=== PATIENT | male | born 1965 | race Caucasian/White ===

== ENCOUNTER 2023-11-05 08:26 | Day surgery (SDC) | payer OTHER ==
[2023-11-03 12:55] VITALS: BMI 31.1
[~2023-11-05 08:26] MED LIST: DEXAMETHASONE SOD PHOSPHATE 4 MG/ML 1 ML VIAL IV ONE; HYDROmorphone 0.5 MG/0.5 ML SYRINGE IVP PRN; MIDAZOLAM 2 MG/2 ML VIAL IV PRN
[2023-11-05] MEDS: ACETAMINOPHEN TAB 500 MG TAB PO PRN (09:06)
[2023-11-05] MEDS: ONDANSETRON 4 MG/2 ML VIAL IVP ONE (09:06)
[2023-11-05] MEDS: FAMOTIDINE 20 MG/2 ML VIAL IV STA (09:07)
[2023-11-05] MEDS: LACTATED RINGERS 1,000 ML IV SCH (09:08)
[2023-11-05 09:12] LABS: Glucose,Whole Blood 218 mg/dL (70-110)
[2023-11-05] MEDS: IV FLUID CONTINUATION 1,000 ML IV ONE ×2 (09:15→12:31)
[2023-11-05] MEDS: SCOPOLAMINE 1 MG/72 HR PATCH TRANSDERM ONE (09:26)
[2023-11-05] MEDS: TAMSULOSIN 0.4 MG CAP.ER.24H PO STA (09:26)
[2023-11-05] MEDS: HEPARIN SODIUM,PORCINE 5,000 UNIT/ML 1 ML VIAL SQ PRN (09:27)
[2023-11-05] MEDS ORDERED: PROPOFOL 10 MG/ML 20 ML VIAL IV ONE (09:57)
[2023-11-05] MEDS ORDERED: LIDOCAINE 4% LTA KIT (4 ML) TOPICAL ONE (09:57)
[2023-11-05] MEDS ORDERED: NEOSTIGMINE 1 MG/ML 10 ML VIAL ONE (09:57)
[2023-11-05] MEDS ORDERED: SUCCINYLCHOLINE CHLORIDE 200 MG/10 ML VIAL IV ONE (09:57)
[2023-11-05] MEDS ORDERED: fentaNYL (PF) 50 MCG/ML 2 ML AMP ONE (09:57)
[2023-11-05] MEDS ORDERED: LIDOCAINE 1% INJ 10MG/ML (20 ML MDV) ONE (09:57)
[2023-11-05] MEDS ORDERED: GLYCOPYRROLATE 0.2 MG/ML 2 ML VIAL ONE (09:57)
[2023-11-05] MEDS ORDERED: MIDAZOLAM 2 MG/2 ML VIAL ONE (09:57)
[2023-11-05] MEDS ORDERED: KETOROLAC 30 MG/ML 1 ML VIAL ONE (09:57)
[2023-11-05] MEDS ORDERED: HYDROmorphone (PF) 1 MG/ML ONE (09:57)
[2023-11-05] MEDS ORDERED: ROCURONIUM 10 MG/ML (5 ML VIAL) IV ONE (09:57)
[2023-11-05] MEDS: BUPIVACAINE (PF) 0.25% 30 ML VIAL SQ ONE (10:00)
[2023-11-05 10:10] LABS: African American GFR (CKD) >90 (>60 ml/min/1.73 sqM); Anion Gap 6 mmol/L; Blood Urea Nitrogen 15 mg/dL (9-20); Calcium 9.4 mg/dL (8.4-10.2); Carbon Dioxide 24 mmol/L (22-30); Chloride 106 mmol/L (98-107); Glucose 205 mg/dL (74-99); Non-African American GFR(CKD) >90 (>60 ml/min/1.73 sqM); Potassium 4.1 mmol/L (3.5-5.1); Sodium 136 mmol/L (137-145)
[2023-11-05] MEDS ORDERED: ACETAMINOPHEN TAB 325 MG TAB PO SCH (12:00)
[2023-11-05 12:02] VITALS: TEMP 97.2
--- NOTE | 2023-11-05 12:03 | P.OP ---
Date of Procedure: 11/05/23 Procedure(s) Performed: PREOPERATIVE DIAGNOSIS: Left inguinal hernia POSTOPERATIVE DIAGNOSIS: Large left inguinal hernia PROCEDURE: Laparoscopic da Marcia assisted repair left inguinal hernia with mesh SURGEON: Dr. White ANESTHESIA: General OPERATIVE PROCEDURE DETAILS: Patient was placed in the operating table in the supine position. The patient was placed under general anesthesia. The abdomen was prepped and draped in usual sterile fashion. A small curvilinear supraumbilical incision was made. The fascia was retracted anteriorly with [place] forceps. The Veress needle was inserted. The saline drop test was normal. Insufflation took place to 15 mmHg. An 8 mm trocar was placed into the peritoneal cavity. 2 additional 8 mm trochars were placed in the right upper quadrant and left upper quadrant under visualization. The robotic arms were then brought in and docked into place. The fenestrated bipolar was used in the left arm and the laparoscopic mike was utilized in the right arm. A 30 8 mm scope was used in the up position. The peritoneal cavity was inspected. The patient had some adhesions in the right lower quadrant from the prior appendectomy. There may have been the start of a tiny indirect hernia there. This measured less than 1 cm circumferentially and in depth. The patient had a large hernia however on the left-hand side. This contained a portion of sigmoid colon. We were able to reduce the colon however a portion of the pericolonic fat was adhesed to the base of the hernia sac. This adhesion was divided using cautery. Follow that the peritoneum was incised in a horizontal fashion cephalad to the internal inguinal ring. Following that careful dissection of the preperitoneal space took place. This took place using both electrocautery, sharp dissection but primarily blunt dissection. Visualization of the pubic tubercle and Shaquille's ligament took place medially. Full dissection took place laterally as well. The hernia sac was fully dissected. There was no visible cord lipoma penetrating through the internal inguinal ring. Once we had adequat e space the [id number] Progrip mesh was advanced into the preperitoneal space and flattened out appropriately to cover all potential hernia sites. The mesh was sutured in place medially using a absorbable 3 OV lock suture approximating the mesh to Shaquille's ligament and then extending anteriorly in the midline. The peritoneal defect was then closed using a absorbable 2-0 VLok suture. The hernia sac was incorporated into the peritoneal closure to help prevent future recurrence. The pneumoperitoneum was then evacuated. The skin of all 3 sites was closed using a 4-0 Monocryl stitch. Skin glue was then applied. TYPE OF MESH USED: ProGrip 15 x 10 cm LOCATION OF MESH: Preperitoneal FIXATION: Absorbable 3 oh V-Loc PREOPERATIVE DISCUSSION ON SMOKING CESSASTION: Yes PREOPERATIVE DISCUSSION ON MORBID OBESITY: Yes PREOPERATIVE DISCUSSION ON APPROPRIATE USE OF NARCOTIC USE: Yes PREOPERATIVE EDUCATION: Multi Modal, Smoking Cessation and Weight Loss with BMI over 35. DISPOSITION: Stable to recovery room
[2023-11-05 13:18] VITALS: RESP 20
[2023-11-05] MEDS: IBUPROFEN 600 MG TAB PO SCH (13:27)
[2023-11-05 14:28] VITALS: BP 110/73; PULSE 74
== END 2023-11-05 15:04 | disposition home or self-care (01) ==
LOC: OR 08:26
PROVIDERS: ATTEND Surgery
DX: K40.90 Unilateral inguinal hernia, without obstruction or gangrene, not specified as recurrent
CPT/HCPCS: 49650; S2900; 80048